=== PATIENT | male | born 1975 | race Hispanic/Latino ===

== ENCOUNTER 2023-01-27 09:10 | Emergency (ER) | payer BC ==
[2023-01-27] MEDS ORDERED: Sodium Chloride 0.9% 100 ML ONE (09:38)
[2023-01-27] MEDS ORDERED: Sodium Chloride 0.9% 1,000 ML ONE (09:38)
[2023-01-27] MEDS ORDERED: CEFAZOLIN 1 GM VIAL ONE (09:38)
[2023-01-27] MEDS ORDERED: Boostrix 0.5 ML (Tdap) VIAL (>/=7 yrs of age) ONE (09:38)
[2023-01-27 09:53] LABS: Hemoglobin 14.2 g/dL (14.0-18.0); Mean Corpuscular HGB CONC 32.4 g/dL (32.0-36.0); Mean Corpuscular Hemoglobin 29.8 pg (27.0-31.0); Mean Platelet Volume 7.6 fL (7.4-10.4); Platelet Count 300 10x3/uL (130-400); RBC Distribution Width 12.7 % (11.5-14.5); Red Blood Cell (RBC) Count 4.78 mill/uL (4.70-6.10)
[2023-01-27 09:54] LABS: #Eosinphils 0.1 thou/uL (0.0-0.7); #Lymphocytes 1.7 thou/uL (1.20-3.40); #Monocytes 0.4 thou/uL (0.11-0.59); #Neutrophils 8.8 thou/uL (1.40-6.50); %Basophils 0.4 % (0.0-1.0); %Eosinophils 0.7 % (0.0-10.0); %Lymphocytes 15.6 % (21.0-51.0); %Monocytes 3.7 % (0.0-10.0); %Neutrophils 79.6 % (42.0-75.0); Manual Diff?? NO
[2023-01-27 10:05] LABS: Calcium 9.6 mg/dL (7.6-10.4); Chloride 105 mmol/L (98-107); Glucose 291 mg/dL (70-105); Protein, Total 7.4 g/dL (6.0-8.3)
[2023-01-27 10:06] LABS: Albumin 4.3 g/dL (3.5-5.0); Globulin 3.1 g/dL (2.4-3.5); Potassium 4.1 mmol/L (3.5-5.1); Sodium 139 mmol/L (136-145)
[2023-01-27 10:08] LABS: ALT (SGPT) 43 U/L (8-55); AST (SGOT) 18 U/L (5-34); Alkaline Phosphatase 219 U/L (40-110); Anion Gap 19 mmol/L (10-20); BUN (Urea Nitrogen) 18 mg/dL (8.9-20.6); Bilirubin, Total 0.4 mg/dL (0.2-1.2); Calc. Creatinine Clearance 0 mL/min (70-130); Carbon Dioxide 19 mmol/L (22-29); Estimated GFR 110
[2023-01-27 10:10] LABS: Troponin I Less than 0.010 ng/mL (< 0.028)
[2023-01-27 11:07] LABS: Bilirubin Negative (Negative); Blood, Urine Negative (Negative); Clarity Clear (Clear); Glucose, Urine (Dipstick) 500 mg/dL (Negative); Ketone, Urine Negative (Negative); Leukocyte Negative (Negative); Nitrite Negative (Negative); Protein, Urine (Dipstick) 30 mg/dL (Neg-Trace); Specific Gravity, Urine 1.025 (1.005-1.030); Squamous Epithelial 0-3 HPF (0-3); Urobilinogen 0.2 mg/dL (Less than 2)
[2023-01-27 12:25] LABS: Lactic Acid 2.2 mmol/L (0.5-2.2)
== END 2023-01-27 13:48 | disposition short-term general hospital (02) ==
LOC: NAV ERS 09:10
DX: T81.49XA Infection following a procedure, other surgical site, initial encounter (principal); I10 Essential (primary) hypertension; F17.210 Nicotine dependence, cigarettes, uncomplicated
CPT/HCPCS: 36415; 80053; 81001; 83605; 84484; 85025; 87040; 90471; 90715; 93005; 96365; J0690; J3490; J7050